=== PATIENT | female | born 1995 | race Caucasian/White ===

== ENCOUNTER 2022-04-17 14:40 | Outpatient (CLI) | payer BC, SELFPAY ==
[2022-04-17 18:19] LABS: Cholesterol* 158 mg/dL (90-199); HDL Cholesterol* 63 mg/dL (>=50); LDL Cholesterol Calculated 86 mg/dL (<100); Triglycerides* 47 mg/dL (40-149)
== END 2022-04-17 14:41 | disposition home or self-care (01) ==
PROVIDERS: PCP Family Medicine; Visit Provider Family Medicine
DX: Z12.4 Encounter for screening for malignant neoplasm of cervix (principal); Z13.6 Encounter for screening for cardiovascular disorders; Z13.0 Encounter for screening for diseases of the blood and blood-forming organs and certain disorders involving the immune mechanism
CPT/HCPCS: 80061; 88174